=== PATIENT | female | born 1960 | race Caucasian/White ===

== ENCOUNTER 2016-05-10 07:15 | Day surgery (SDC) | payer BC ==
[~2016-05-10] VITALS: Ht 172.7 cm; Wt 52.1 kg
[~2016-05-10 07:15] MED LIST: DEXTROSE 5%-0.45% SODIUM CHL 1,000 ML IV ONE; LORazepam 2 MG/ML VIAL IVP ONE
[2016-05-10] MEDS ORDERED: CeFAZolin 1 GM/DEXTROSE 50 ML IV ONE ×2 (07:30→08:38)
[2016-05-10] MEDS ORDERED: DEXTROSE 5%-0.45% SODIUM CHL 1,000 ML IV ONE (07:41)
[2016-05-10 08:03] LABS: BASOPHILS % (AUTO) 0.3 % (0.0-2.0); EOSINOPHILS % (AUTO) 0.8 % (1.0-6.0); HEMATOCRIT 29.6 % (36-46); HEMOGLOBIN 9.7 g/dL (12.0-16.0); MEAN CORPUSCULAR HEMOGLOBIN 26.1 pg (26.0-34.0); MEAN CORPUSCULAR HGB CONC 32.7 G/dL (31.0-37.0); MEAN CORPUSCULAR VOLUME 80 fL (80-100); MONOCYTES # (AUTO) 1.2 K/uL (0.1-1.0); MONOCYTES % (AUTO) 15.9 % (2.0-9.0); NEUTROPHILS # (AUTO) 5.2 K/uL (1.8-7.7); PLATELET COUNT (AUTO) 509 K/uL (150-450); RED BLOOD CELL COUNT(AUTO) 3.71 MIL/uL (4.00-5.20); RED CELL DISTRIBUTION WIDTH 18.1 % (11.5-14.5); WHITE BLOOD COUNT (AUTO) 7.4 K/uL (4.5-11.0)
[2016-05-10 08:08] LABS: ANION GAP 7 mmol/L (8-16); CALCIUM, TOTAL 8.9 mg/dL (8.8-10.5); CARBON DIOXIDE 28 mmol/L (22-29); CHLORIDE 103 mmol/L (98-107); CREATININE 0.65 mg/dL (0.60-1.30); GLOMERULAR FILTR. RATE CALC > 60 mL/min (>60); POTASSIUM 3.9 mmol/L (3.5-5.1); SODIUM SERUM 138 mmol/L (136-145); UREA NITROGEN, BLOOD 14 mg/dL (7-18)
[2016-05-10] MEDS ORDERED: 0.9% SODIUM CHLORIDE 10 ML SYRINGE IVP ONE (08:11)
[2016-05-10 08:13] LABS: INR 1.1 (0.9-1.1); PROTHROMBIN TIME 11.4 SEC (9.4-11.6)
[2016-05-10 08:21] LABS: RBC MORPHOLOGY COMMENT ABNORMAL RBC MORPH
[2016-05-10] MEDS ORDERED: GENI30TA2 PO (08:31)
[2016-05-10] MEDS ORDERED: [UNRECOGNIZED DRUG - CODE] PO (08:31)
[2016-05-10] MEDS ORDERED: THIA100 PO (08:31)
[2016-05-10] MEDS ORDERED: VITAD400 PO (08:31)
[2016-05-10] MEDS ORDERED: PANC1POW MC (08:31)
[2016-05-10] MEDS ORDERED: QUER1POW PO (08:31)
[2016-05-10] MEDS ORDERED: UBID10CA6 PO (08:31)
[2016-05-10] MEDS ORDERED: FentaNYL CITRATE-PF 100 MCG/2 ML VIAL ONE ×2 (08:43→10:44)
[2016-05-10] MEDS ORDERED: IODIXANOL 320 MG/ML 150 ML VIAL ONE (08:44)
[2016-05-10] MEDS ORDERED: MIDAZOLAM HCL 2 MG/2 ML VIAL ONE (08:44)
[2016-05-10] MEDS ORDERED: LIDOCAINE HCL/PF 1% 30 ML VIAL ONE (08:44)
[2016-05-10] MEDS ORDERED: LORazepam 2 MG/ML VIAL ONE (09:04)
[2016-05-10] MEDS ORDERED: HEPARIN SODIUM 1000 UNITS/NS 500 ML ONE (09:23)
[2016-05-10] MEDS ORDERED: MIDAZOLAM HCL 2 MG/2 ML VIAL IVP ONE (10:01)
[2016-05-10] MEDS ORDERED: IODIXANOL 320 MG/ML 100 ML VIAL ONE (10:50)
[2016-05-10] MEDS ORDERED: FentaNYL CITRATE-PF 100 MCG/2 ML VIAL IVP ONE (11:08)
[2016-05-10] MEDS ORDERED: PROMETHAZINE HCL 25 MG TABLET PO ONE (11:45)
[2016-05-10] MEDS ORDERED: HYDROmorphone 2 MG/ML SYRINGE IVP ONE (11:45)
[2016-05-10] MEDS ORDERED: PROMETHAZINE HCL/CODEINE 6.25-10MG/5ML SYRUP UDCUP PO ONE (12:15)
== END 2016-05-10 13:00 | disposition home or self-care (01) ==
LOC: SDS 07:15
PROVIDERS: ATTEND Radiology Diagnostic Radiology
DX: R91.8 Other nonspecific abnormal finding of lung field (principal); E78.00 Pure hypercholesterolemia, unspecified; Z72.89 Other problems related to lifestyle; Z90.49 Acquired absence of other specified parts of digestive tract; Z85.118 Personal history of other malignant neoplasm of bronchus and lung; Z79.01 Long term (current) use of anticoagulants
CPT/HCPCS: 36415; 37242; 75605; 75710; 80048; 85025; 85610; C1760; C1769 ×2; C1887 ×3; C1892 ×2; J0690; J1644; J2060; J2250; J3010; J3490; Q9967; 75774; 92928